=== PATIENT | female | born 1950 | race Caucasian/White ===

== ENCOUNTER → 2024-02-02 11:25 | Outpatient (REF) | payer OTHER, SELFPAY | LOC: HWWDC 11:25 | PROVIDERS: ATTENDING PHYSICIAN Family Medicine | DX: Z12.31 Encounter for screening mammogram for malignant neoplasm of breast (principal) | CPT/HCPCS: 77063; 77067 ==

== ENCOUNTER → 2024-02-23 14:45 | Outpatient (REF) | payer OTHER, SELFPAY | LOC: HWRAD 14:45 | PROVIDERS: ATTENDING PHYSICIAN Obstetrics & Gynecology; FAMILY PHYSICIAN Family Medicine | DX: Z78.0 Asymptomatic menopausal state (principal) | CPT/HCPCS: 77080 ==

== ENCOUNTER 2025-01-08 06:13 | Day surgery (SDC) | payer OTHER, SELFPAY | END 2025-01-08 14:50 | LOC: GI 06:13 | PROVIDERS: ATTENDING PHYSICIAN Internal Medicine | DX: Z12.11 Encounter for screening for malignant neoplasm of colon (principal); K57.30 Diverticulosis of large intestine without perforation or abscess without bleeding; D12.0 Benign neoplasm of cecum; D12.4 Benign neoplasm of descending colon | CPT/HCPCS: 45385; 45380; 88305 ==

== ENCOUNTER → 2025-02-03 13:03 | Outpatient (REF) | payer OTHER, SELFPAY | LOC: HWWDC 13:03 | PROVIDERS: ATTENDING PHYSICIAN Obstetrics & Gynecology; FAMILY PHYSICIAN Family Medicine | DX: Z12.31 Encounter for screening mammogram for malignant neoplasm of breast (principal) | CPT/HCPCS: 77063; 77067 ==